=== PATIENT | male | born 1985 | race African-American/Black ===

== ENCOUNTER 2016-11-22 20:57 | Emergency (ER) | payer OTHER ==
[~2016-11-22] VITALS: Ht 175.3 cm; Wt 94.3 kg
[2016-11-22 22:00] VITALS: BP 132/74
[2016-11-22] MEDS ORDERED: DIAZ5TAB PO (22:06)
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
== END 2016-11-22 22:23 | disposition home or self-care (01) ==
LOC: ER 20:57
DX: S16.1XXA Strain of muscle, fascia and tendon at neck level, initial encounter (principal); S46.911A Strain of unspecified muscle, fascia and tendon at shoulder and upper arm level, right arm, initial encounter; S20.219A Contusion of unspecified front wall of thorax, initial encounter; V89.2XXA Person injured in unspecified motor-vehicle accident, traffic, initial encounter; Y92.413 State road as the place of occurrence of the external cause; Y93.89 Activity, other specified; Y99.8 Other external cause status
CPT/HCPCS: 99283